=== PATIENT | female | born 1995 | race Caucasian/White ===

== ENCOUNTER 2020-10-29 04:11 | Emergency (ER) | payer OTHER ==
[~2020-10-29 04:11] MED LIST: ATIVAN0.5 MG PO; BACITRACIN15 GM TOP
[2020-10-29 04:30] LABS: BASOPHIL 0.8 % (0-2); EOSINOPHIL 1.8 % (0-5); HCT 46.2 % (37.0-47.0); HGB 15.2 g/dl (12.5-16.0); LYMPHOCYTE 32.8 % (15-48); MCH 31.3 pg (25.0-31.0); MCHC 32.9 g/dL (32.0-36.0); MCV 95.1 fL (78.0-100.0); MONOCYTE 3.4 % (0-12); NEUTROPHIL 59.1 % (41-80); NRBC 0; PLT 246 K/uL (150-400); RBC 4.86 M/uL (4.20-5.40); RDW 11.9 % (11.5-14.0); WBC 9.5 K/uL (4.0-10.5)
[2020-10-29 04:52] LABS: ALBUMIN 4.3 g/dL (3.4-5.0); ALKALINE PHOSHATASE 95 U/L (46-116); ALT 168 U/L (14-59); AST 304 U/L (15-37); BILIRUBIN - TOTAL 0.5 mg/dL (0.2-1.0); BUN 24 mg/dL (7-18); BUN/CREAT RATIO (CALC) 20.3 RATIO; CHLORIDE 100 mmol/L (98-107); CO2 (BICARBONATE) 22 mmol/L (21-32); CREATININE 1.18 mg/dL (0.51-0.95); GLOBULIN (CALCULATION) 4.2 g/dL; GLUCOSE 231 mg/dL (74-106); POTASSIUM 4.8 mmol/L (3.5-5.1); TOTAL PROTEIN 8.5 g/dL (6.4-8.2)
[2020-10-29 04:54] LABS: BILIRUBIN NEGATIVE (NEGATIVE); BLOOD 1+ Ery/uL (NEGATIVE); CLARITY CLEAR (CLEAR); COLOR YELLOW (YELLOW); GLUCOSE (U) 1+ mg/dL (NORMAL); LEUKOCYTES NEGATIVE Leu/uL (NEGATIVE); NITRITE NEGATIVE (NEGATIVE); PROTEIN 1+ mg/dL (NEGATIVE); SPECIFIC GRAVITY 1.025 (1.001-1.030); UROBILINOGEN 0.2 mg/dL (0.2-1.0); pH 5.5 (5.0-9.0)
[2020-10-29 04:55] LABS: ACETAMINOPHEN (TYLENOL) < 2.0 ug/mL (10.0-30.0)
[2020-10-29 04:56] LABS: LACTIC ACID 11.2 mmol/L (0.4-1.9)
[2020-10-29 04:56] LABS: AMPHETAMINES NEGATIVE (NEGATIVE); BARBITURATES NEGATIVE (NEGATIVE); ECSTASY (MDMA) NEGATIVE (NEGATIVE); MARIJUANA (THC) NEGATIVE (NEGATIVE); METHADONE NEGATIVE (NEGATIVE); OPIATES NEGATIVE (NEGATIVE); OXYCODONE NEGATIVE (NEGATIVE)
[2020-10-29 05:05] LABS: AMORPHOUS URATES CRYSTALS MODERATE; BACTERIA 1+; MUCOUS TRACE; URINARY RBC RARE
[2020-10-29 07:40] LABS: CREATININE 0.89 mg/dL (0.51-0.95); POTASSIUM 4.6 mmol/L (3.5-5.1)
[2020-10-29] MEDS ORDERED: ONDANSETRON ODT4 MG PO (08:16)
== END 2020-10-29 09:50 | disposition home or self-care (01) ==
LOC: FER 04:11
PROVIDERS: Emergency Medicine Emergency Medical Services
DX: T40.1X1A Poisoning by heroin, accidental (unintentional), initial encounter (principal); R41.82 Altered mental status, unspecified
CPT/HCPCS: 36415; 71045; 80048; 80053; 80305; 81001; 83605; 85025; 87040; 87088; 93005; G0480; J2310; J2405; J7030

== ENCOUNTER 2021-10-18 02:09 | Emergency (ER) | payer OTHER ==
[~2021-10-18 02:09] MED LIST changes: +ONDANSETRON ODT4 MG PO
[2021-10-18] MEDS ORDERED: LIFEMS NALO2 MG/2 ML IN (09:01)
== END 2021-10-18 04:42 | disposition home or self-care (01) ==
LOC: FER 02:09
DX: T40.1X1A Poisoning by heroin, accidental (unintentional), initial encounter (principal); F17.210 Nicotine dependence, cigarettes, uncomplicated
CPT/HCPCS: 99284

== ENCOUNTER 2021-10-18 08:45 | Emergency (ER) | payer OTHER ==
[2021-10-18] MEDS ORDERED: LIFEMS NALO2 MG/2 ML IN (09:01)
== END 2021-10-18 09:10 | disposition home or self-care (01) ==
LOC: FER 08:45
DX: T40.2X1A Poisoning by other opioids, accidental (unintentional), initial encounter (principal); R41.82 Altered mental status, unspecified; F17.200 Nicotine dependence, unspecified, uncomplicated
CPT/HCPCS: 99284

== ENCOUNTER 2021-10-26 16:35 | Emergency (ER) | payer OTHER ==
[~2021-10-26 16:35] MED LIST changes: +LIFEMS NALO2 MG/2 ML IN
[2021-10-26 18:10] LABS: BASOPHIL 0.5 % (0-2); HCT 40.2 % (37.0-47.0); HGB 13.4 g/dl (12.5-16.0); LYMPHOCYTE 10.5 % (15-48); MCH 30.3 pg (25.0-31.0); MCHC 33.3 g/dL (32.0-36.0); MONOCYTE 5.6 % (0-12); MPV 8.8 fL (6.0-9.5); NRBC 0; PLT 219 K/uL (150-400); RBC 4.42 M/uL (4.20-5.40); RDW 12.9 % (11.5-14.0); WBC 9.4 K/uL (4.0-10.5)
[2021-10-26 18:15] LABS: BILIRUBIN NEGATIVE (NEGATIVE); BLOOD NEGATIVE Ery/uL (NEGATIVE); CLARITY CLEAR (CLEAR); COLOR YELLOW (YELLOW); GLUCOSE (U) TRACE mg/dL (NORMAL); LEUKOCYTES NEGATIVE Leu/uL (NEGATIVE); NITRITE NEGATIVE (NEGATIVE); PROTEIN 1+ mg/dL (NEGATIVE); SPECIFIC GRAVITY >=1.030 (1.001-1.030); UROBILINOGEN 0.2 mg/dL (0.2-1.0)
[2021-10-26 18:18] LABS: AMPHETAMINES POSITIVE (NEGATIVE); BARBITURATES NEGATIVE (NEGATIVE); ECSTASY (MDMA) POSITIVE (NEGATIVE); MARIJUANA (THC) POSITIVE (NEGATIVE); METHADONE NEGATIVE (NEGATIVE); OPIATES POSITIVE (NEGATIVE)
[2021-10-26 18:19] LABS: OXYCODONE POSITIVE (NEGATIVE)
[2021-10-26 18:28] LABS: BACTERIA TRACE; URINARY WBC RARE
[2021-10-26 18:38] LABS: ALBUMIN 3.7 g/dL (3.4-5.0); ALKALINE PHOSHATASE 74 U/L (46-116); ALT 34 U/L (14-59); AST 25 U/L (15-37); BILIRUBIN - TOTAL 1.2 mg/dL (0.2-1.0); BUN 14 mg/dL (7-18); BUN/CREAT RATIO (CALC) 15.6 RATIO; CHLORIDE 105 mmol/L (98-107); CO2 (BICARBONATE) 26 mmol/L (21-32); GLOBULIN (CALCULATION) 3.3 g/dL; GLUCOSE 111 mg/dL (74-106); POTASSIUM 2.9 mmol/L (3.5-5.1)
[2021-10-26 18:39] LABS: ACETAMINOPHEN (TYLENOL) < 2.0 ug/mL (10.0-30.0)
[2021-10-27] MEDS ORDERED: NARCAN4 MG IN (03:46)
== END 2021-10-27 05:40 | disposition home or self-care (01) ==
LOC: FER 16:35 → EDBD 16:35 → FER 10-27 05:40
PROVIDERS: Emergency Medicine
DX: T50.901A Poisoning by unspecified drugs, medicaments and biological substances, accidental (unintentional), initial encounter (principal); R40.4 Transient alteration of awareness; Y92.89 Other specified places as the place of occurrence of the external cause
CPT/HCPCS: 36415; 80053; 80305; 81001; 85025; G0480; J2310; J2405; J7030